=== PATIENT | male | born 2000 | race Caucasian/White ===

== ENCOUNTER 2021-03-13 13:29 | Emergency (ER) | payer OTHER ==
[2021-03-13 13:43] VITALS: BP 109/68; PULSE 57
== END 2021-03-13 14:59 | disposition home or self-care (01) ==
LOC: JERFT 13:29
DX: S05.12XA Contusion of eyeball and orbital tissues, left eye, initial encounter (principal)
CPT/HCPCS: 99283-25

== ENCOUNTER 2021-07-23 22:20 | Emergency (ER) | payer OTHER ==
[2021-07-23 22:38] VITALS: BP 101/61; PULSE 77; TEMP 97.6; BMI 20.2
[2021-07-23] MEDS ORDERED: ACETAMINOPHEN 325 MG TABLET (FP) PO ONE (23:05)
[2021-07-23] MEDS ORDERED: ACETAMINOPHEN 325 MG TABLET (FP) ONE (23:10)
[2021-07-23 23:44] LABS: BASO % 0.2 % (0-2.0); EOS % 3.5 % (0-4.5); HEMATOCRIT 42.1 % (35.4-49); HEMOGLOBIN 14.2 GM/dL (11.7-16.9); LYMPH % 28.3 % (8-40); MCH 31.2 pg (25.7-33.7); MCHC 33.8 g/dl (32.0-35.9); MEAN CELL VOLUME 92.2 fl (80-96); MEAN PLT VOLUME 7.9 fl (7.5-11.1); MONO % 5.2 % (3.8-10.2); NEUT % 62.8 % (42.8-82.8); PLATELET COUNT 221 10^3/uL (134-434); RBC 4.57 M/mm3 (4.00-5.60); RDW 12.4 % (11.9-15.9); WHITE BLOOD COUNT 6.1 K/mm3 (4.0-10.0)
[2021-07-24 00:04] LABS: CALCIUM 9.1 mg/dL (8.5-10.1)
[2021-07-24 00:05] LABS: BLOOD UREA NITROGEN 20.3 mg/dL (7-18)
[2021-07-24 00:08] LABS: CREATININE 1.1 mg/dL (0.55-1.3)
== END 2021-07-24 00:25 | disposition home or self-care (01) ==
LOC: JER 22:20
DX: R07.0 Pain in throat (principal)
CPT/HCPCS: 36415; 70490-TC; 80048; 84443; 85025; 99284-25